=== PATIENT | female | born 1985 | race Two or more races ===

== ENCOUNTER 2024-10-03 10:14 | Outpatient (RCR) | payer MEDICAID, SELFPAY ==
--- NOTE | 2024-08-22 10:57 | XR_ITS ---
Examination: Biophysical profile, ultrasound Date and time of exam: August 22, 2024 1101 hrs. Indications: High risk , history of polyhydramnios, advanced maternal age Technique: Multiple transabdominal sonographic images of the pelvis abdomen obtained. Attention is directed to the breathing movement, gross body movement, amniotic fluid volume and tone. Findings: Amniotic fluid index 13.7 cm Total biophysical profile is 8 of 8. breathing movement is 2. Gross body movement is 2. tone is 2. Qualitative amniotic fluid volume is 2 Impression: Biophysical profile is 8 of 8.
[2024-08-22 11:35] VITALS: BP 101/70; PULSE 79; RESP 18; TEMP 36.8
--- NOTE | 2024-08-29 10:10 | XR_ITS ---
Examination: Biophysical profile, ultrasound Date and time of exam: August 29, 2024 10:29 AM INDICATIONS: Diagnosis high risk , polyhydramnios, advanced maternal age Technique: Multiple transabdominal sonographic images of the pelvis abdomen obtained. Attention is directed to the breathing movement, gross body movement, amniotic fluid volume and tone. Findings: Amniotic fluid index 14.2 cm Total biophysical profile is 8 of 8. breathing movement is 2. Gross body movement is 2. tone is 2. Qualitative amniotic fluid volume is 2 Impression: Biophysical profile is 8 of 8.
[2024-08-29 10:55] VITALS: BP 108/72; PULSE 82; RESP 16; TEMP 36.6
--- NOTE | 2024-09-05 10:40 | XR_ITS ---
EXAMINATION: US OB biophysical profile ORDERING PROVIDER: Maral Henry CNM HISTORY: WEEKLY BPP/NST POLYHYDRAMNIOS, AMA TECHNIQUE: Multiple transabdominal sonographic images were obtained by public health technologist and submitted for interpretation. COMPARISON: 08/29/2024, ultrasound OB biophysical profile. FINDINGS: FETUS: Singh. PRESENTATION: Cephalic. HEART MOTION: 144 beats/min. AMNIOTIC FLUID INDEX: 13.2 cm BREATHING MOVEMENT: 2 . GROSS BODY MOVEMENT: 2 . TONE: 2 . QUALITATIVE AMNIOTIC FLUID VOLUME: 2 TOTAL BIOPHYSICAL PROFILE: 8 of 8 . IMPRESSION: Single live intrauterine gestation with biophysical profile 8 of 8.
[2024-09-05 11:09] VITALS: BP 90/55; PULSE 88; RESP 16; TEMP 36.6
--- NOTE | 2024-09-12 10:20 | XR_ITS ---
Examination: Biophysical profile, ultrasound Date and time of exam: September 12, 2024 1034 hours INDICATIONS: Diagnosis advanced maternal age, diagnosis polyhydramnios, diagnosis high risk Technique: Multiple transabdominal sonographic images of the pelvis abdomen obtained. Attention is directed to the breathing movement, gross body movement, amniotic fluid volume and tone. Findings: Amniotic fluid index 11.7 cm Total biophysical profile is 8 of 8. breathing movement is 2. Gross body movement is 2. tone is 2. Qualitative amniotic fluid volume is 2 Impression: Biophysical profile is 8 of 8.
[2024-09-12 11:40] VITALS: BP 110/76; PULSE 74; RESP 16; TEMP 36.7
--- NOTE | 2024-09-19 10:25 | XR_ITS ---
Examination: Biophysical profile, ultrasound Date and time of exam: September 19, 2024 1030 hours INDICATIONS: Diagnosis polyhydramnios, diagnosis advanced maternal age Technique: Multiple transabdominal sonographic images of the pelvis abdomen obtained. Attention is directed to the breathing movement, gross body movement, amniotic fluid volume and tone. Findings: Amniotic fluid index 6.7 cm Total biophysical profile is 8 of 8. breathing movement is 2. Gross body movement is 2. tone is 2. Qualitative amniotic fluid volume is 2 Impression: Biophysical profile is 8 of 8.
[2024-09-19 11:01] VITALS: BP 103/54; PULSE 84; RESP 16; TEMP 36.7
--- NOTE | 2024-09-26 10:06 | XR_ITS ---
Examination: Biophysical profile, ultrasound Date and time of exam: September 26, 2024 1050 hours INDICATIONS: Diagnosis polyhydramnios, diagnosis advanced maternal age Technique: Multiple transabdominal sonographic images of the pelvis abdomen obtained. Attention is directed to the breathing movement, gross body movement, amniotic fluid volume and tone. Findings: Amniotic fluid index 7.4 cm Total biophysical profile is 8 of 8. breathing movement is 2. Gross body movement is 2. tone is 2. Qualitative amniotic fluid volume is 2 Impression: Biophysical profile is 8 of 8.
[2024-09-26 11:05] VITALS: BP 110/66; PULSE 84; RESP 16; TEMP 36.8
--- NOTE | 2024-10-03 10:23 | XR_ITS ---
Examination: Biophysical profile, ultrasound Date and time of exam: October 03, 2024 1040 hrs. Indications: Diagnosis advanced maternal age, history polyhydramnios, diagnosis high risk Technique: Multiple transabdominal sonographic images of the pelvis abdomen obtained. Attention is directed to the breathing movement, gross body movement, amniotic fluid volume and tone. Findings: Amniotic fluid index 7.3 cm Total biophysical profile is 8 of 8. breathing movement is 2. Gross body movement is 2. tone is 2. Qualitative amniotic fluid volume is 2 Impression: Biophysical profile is 8 of 8.
[2024-10-03 11:04] VITALS: BP 109/76; PULSE 85; RESP 16; TEMP 36.7
== END 2024-10-03 23:59 | disposition home or self-care (01) ==
LOC: S4S1 10:14
PROVIDERS: PCP Family Medicine; Referring Provider Advanced Practice Midwife; Visit Provider Advanced Practice Midwife
DX: O40.3XX0 Polyhydramnios, third trimester, not applicable or unspecified (principal); O09.523 Supervision of elderly multigravida, third trimester; O09.93 Supervision of high risk pregnancy, unspecified, third trimester
CPT/HCPCS: 59025; 76819

== ENCOUNTER 2024-10-06 11:35 | Outpatient (CLI) | payer MEDICAID, SELFPAY ==
[2024-10-06 11:37] VITALS: BP 102/69; PULSE 93
[2024-10-06 11:42] VITALS: BP 102/69; PULSE 93; RESP 16; RESP 98; TEMP 36.7; O2SAT 98; BMI 33.3
== END 2024-10-06 12:15 | disposition home or self-care (01) ==
LOC: S4S1 11:36 → S4SX 11:36
PROVIDERS: Referring Provider Obstetrics & Gynecology; Visit Provider Obstetrics & Gynecology
DX: O48.0 Post-term pregnancy (principal); Z3A.40 40 weeks gestation of pregnancy
CPT/HCPCS: 59025

== ENCOUNTER 2024-10-06 21:53 | Inpatient (IN) | payer MEDICAID, SELFPAY ==
[2024-10-06] VITALS (16 sets, daily range): BP systolic 108–111; BP diastolic 69–75; PULSE 66–87; RESP 18; TEMP 36.7; O2SAT 96–100; BMI 32.2
[2024-10-06 22:31] LABS: Basophils % (Auto) 1 % (0-2.5); Eosinophils # (Auto) 0.1 Thou/mm3 (0.0-0.5); Eosinophils % (Auto) 2 % (0-10); Hematocrit 26.1 % (36.0-46.0); Immature Granulocytes % (Auto) 1 % (0-0); Immature Granulocytes Auto 0.03 Thou/mm3 (0.00-0.00); Lymphocytes # (Auto) 1.5 Thou/mm3 (1.0-4.8); Lymphocytes % (Auto) 25 % (10-50); Mean Corpuscular HGB Conc 32.2 g/dl (31.0-37.0); Mean Corpuscular Hemoglobin 22.8 pg (25.0-35.0); Mean Corpuscular Volume 71 fL (80-100); Monocytes # (Auto) 0.5 Thou/mm3 (0.0-0.8); Monocytes % (Auto) 8 % (0-12); Neutrophils # (Auto) 3.8 Thou/mm3 (1.8-7.7); Neutrophils % (Auto) 64 % (37-80); Nucleated Red Blood Cell # 0.06 Thou/mm3 (0.00-0.00); Nucleated Red Blood Cell % 1 /100 WBC (0); Platelet Count 178 Thou/mm3 (140-440); RDW Standard Deviation 44.2 fL (36.4-46.3); Red Blood Count 3.69 Miln/mm3 (4.00-5.20); White Blood Count 5.9 Thou/mm3 (3.6-11.0)
[2024-10-06] MEDS: RINGERS LACTATED 1000 ML 1,000 ML 100 ML IV (22:34)
--- NOTE | 2024-10-06 22:46 | ESHP_ITS ---
Documentation for date of: 10/06/24 OB Labor/Induct. HPI History of Present Illness : 7 Para: 4 Term pregnancies: 4 pregnancies: 0 Living children: 4 History of Abortions: Spontaneous and Elective: 2 History of Vaginal deliveries: 4 History of sections: No Date of last menstrual period: 12/31/23 IVELISSE: 10/06/24 Gestational Age (weeks): 40 Gestational Age (days): 0 Gestational age based on last menstrual period: 40 History of present illness: Katarina is a 39yo with SIUP presenting for IOL indicated for AMA, obesity (BMI 30). She has had normal movement. No painful/regular ctx. No LOF or vb. History of Present Dating criteria: based on LMP only Adequate Care: Yes Ultrasounds: abnormal US findings Abnormal ultrasound findings: 5mm VSD, polyhydramnios (resolved on later ultrasounds) Narrative: G1-4 term uncomplicated svds, proven to 7lb G5: early sab with D&C G6: early sab (twins) G7: current. complications: Obesity (starting BMI 30), AMA, elevated 1hr glucola but only 1 elevation on 3hr GTT (starting HgbA1c 5.6), anemia, VSD 5mm Labs Maternal Blood Type: O Pos Labs: Positive: Rubella Titre and Negative: RPR, Hepatitis B, HIV, Chlamydia, Gonorrhea and Group Beta Strep Narrative: Negative NIPT, negative CF and SMA testing Review of Systems Review of Systems Narrative Review of Systems: Review of Systems Systems Reviewed: All systems reviewed, normal except as documented Constitutional Constitutional: Denies body ache(s), Denies chills, Denies fever(s) and Denies headache(s) ENT Ears, Nose, Mouth, and Throat: Denies headache(s) and Denies vertigo Cardiovascular Cardiovascular: Denies chest pain, Denies palpitations, Denies dyspnea and Denies syncope Respiratory Respiratory: Denies cough, Denies dyspnea Gastrointestinal Gastrointestinal: Denies nausea and Denies vomiting Neurologic Neurologic: Denies convulsions, Denies headache(s), Denies other visual disturbances, Denies syncope and Denies vertigo Past Medical History Family History OTHER FAMILY HX: non-contributory Surgical History SURGICAL: Negative Section OTHER SURGICAL HX: Hx of cervical cryotherapy, D&C for sab Social History SOCIAL: No ETOH, illicit drug use, or tobacco Past Medical History Comments PMH COMMENT: Obesity (starting BMI 30), initial HgbA1c 5.6 Hx of abnormal pap, +HPV, treated with cryotherapy. Most recent pap wnl. Meds Home Medications and Allergies Allergies Allergy/AdvReac Type Severity Reaction Status Date / Time No Known Allergies Allergy Verified 10/06/24 21:57 OB Exam Physical Exam Vital signs: Pulse BP 73 111/69 10/06/24 22:37 10/06/24 22:37 Narrative: General: well developed, well nourished, no acute distress, conversant Cardiac: normal heart rate Lungs: breathing without distress Abdomen: soft, gravid, non-tender, no rebound or guarding Extremities: no pain with palpation of calves Detailed Labor and Delivery Exam Dilation (cm): 2 Effacement (%): 50 station: -2 Presentation: Vertex Membranes: intact Baseline heart rate: 135 monitor accelerations: 15x15 monitor decelerations: None long term care administrator variability: Moderate (11-25) Contraction frequency (min): q8-10min OB Results Labs 10/06/24 22:08 OB Assessment & Plan Assessment and Plan (1) Elderly multigravida in third trimester: Status: Acute Assessment and plan: Katarina is a 39yo with SIUP presenting for IOL indicated for AMA and A1GDM. SCE: 250/-3. Vitals wnl, benign exam. Reassuring assessment overall. care: Good care with [facility]. Available records in EMR reviewed. PMhx/PNC significant for: -AMA, age 39 -elevated 1hr glucola but only 1 elevation on 3hr GTT (starting HgbA1c 5.6) -Obesity (starting BMI 30) -anemia - VSD 5mm Plan: -Admit to L&D -Establish IV, routine labs -Intermittent monitoring during early IOL -Clear liquid diet -Divisional Human Resources Director/consent re: iol and -GBS status: negative -Will initiate IOL with: cytotec 50mcg PO Q4hr -Anticipate -Safe to proceed Tessa Champion MD (2) Gestational diabetes: Status: Acute (3) Encounter for induction of labor: Status: Acute (2) Gestational diabetes Qualifiers: Gestational diabetes mellitus control: diet-controlled Trimester: third trimester Qualified Code(s): O24.410 - Gestational diabetes mellitus in , diet controlled
[2024-10-06 22:50] LABS: Hemoglobin 8.4 g/dL (12.0-16.0)
[2024-10-06] MEDS: MISOPROSTOL 50 mCg TABLET PO (23:25)
[2024-10-06 23:47] LABS: Syphilis Nonreactive (Nonreactive)
[2024-10-07] VITALS (128 sets, daily range): BP systolic 100–148; BP diastolic 62–87; PULSE 56–96; RESP 14–20; TEMP 36.5–37.3; O2SAT 86–100
[2024-10-07] MEDS: fentaNYL CIT INJ 50 mCg/ML AMP 2ML 100 MCG IV ×2 (03:31→07:16)
[2024-10-07] MEDS: MISOPROSTOL 50 mCg TABLET PO (04:50)
[2024-10-07] MEDS: OXYTOCIN in NS 20 units 20 UNIT/1,000 ML BAG 125 UNIT IV ×2 (08:29→09:47)
[2024-10-07] MEDS: METHYLERGONOVINE INJ 0.2 MG/ML VIAL IM (08:34)
[2024-10-07] MEDS: TRANEXAMIC ACID 1,000 MG IVPB 1,000 MG/100 ML BAG 200 MG IV (08:34)
[2024-10-07] MEDS: MISOPROSTOL 200 mCg TABLET 800 MCG PR (08:37)
[2024-10-07] MEDS: OXYTOCIN INJ 10 UNIT/ML VIAL IM (08:39)
--- NOTE | 2024-10-07 09:07 | PD.LDDELS ---
Data (Singh) Data Hx Section: No Maternal Blood Type: O Pos Rubella Titre: Positive RPR: Non-reactive Labs: Negative: RPR, Hepatitis B, HIV, Chlamydia, Gonorrhea and Group Beta Strep : 7 Term: 4 : 0 Livin : 2 Delivery Data (Singh) Labor Data Stimulated/Augmented: Yes Induction: Yes Method: Cytotec ROM Date: 10/07/24 ROM Time: 08:23 Length ROM (minutes): 3 Rupture Type: AROM Amniotic Fluid: Clear Delivery Data EDC: 10/06/24 EDC calculated by:: LMP/early US confirmation Delivery Date: 10/07/24 Delivery Time: 08:26 Gestational age (weeks): 40 Gestational age (days): 1 Placenta Delivery Date: 10/07/24 Placenta Delivery Time: 08:30 Length stage 2 (minutes): 3 Length stage 3 (minutes): 4 Delivered by: Yess[facility] ([facility]) Delivery nurse: Christina Conti nurse: Marquita Collar Stitcher at delivery: No Support person(s) at delivery: None Other staff at delivery: Kasey Wiley banbury mill operator Method Delivery: Vaginal Presentation: Vertex Position: OA Anesthesia Type Primary Anesthesia: None Secondary Anesthesia: None Delivery Room Medications Other Intrapartum Medications: No Post Delivery Medications: Cytotec and Ergotrate (Extra 10 units of Pitocin in IV bag, TXA) Post Delivery Medications N/A: Yes Placenta Placenta Delivery: Spontaneous Placenta Cultures Obtained: No Placenta Sent for Examination: No Cord Sample: Cord Blood Obtained Episiotomy Episiotomy: None EBL Estimated blood loss (ml): 500 Umbilical Cord Umbilical Vessels: 3 Nuchal Cord: None Body Cord: None Additional Procedures The patient is a 39-year-old who was admitted 10/06/24 for an induction of labor for postdates at 40 1/7 weeks. She was given Cytotec orally x 2. She was approximately 4 cm dilated when she was turned over to nc at 7:00 in the morning by Dr. Champion on 10/07/2024. The baby had a reactive Category I tracing and patient was phylicia every 3 minutes. She went on to progress to 9 cm dilation by approximately 8:15 in the morning and felt the urge to push. The patient had declined an epidural. An amniotomy was performed at 8:23 AM and the patient began pushing within the next 2-3 contractions. She pushed a total of 1-2 contractions delivering a liveborn male at 8:26 am. Findings:liveborn male in the MICHELET presentation with no nuchal cord and no meconium. Apgars were 9 and 9. Weight was 8 pounds 5 ounces or approximately 3750 g. The placenta was complete spontaneous grossly normal and delivering within 4 minutes of the baby at approximately 8:30 in the morning. The patient delivered over an intact perineum with no lacerations noted. Immediately after delivery, the patient was found to have brisk bleeding vaginally. Aggressive uterine massage was performed and the uterine cavity carefully evaluated with the surgeon's fingers and no retained products were found. Some clots were extracted. The patient continued to bleed and Methergine was called for and given IM. TXA was also called for. 10 more units of Pitocin was called for and added to the IV bag of pitocin that was already infusing. 800 mcg of Cytotec were then placed rectally. As the patient continued to have moderate bleeding after all of these interventions, the surgeons gloves were changed, and a Bakri balloon was called for and placed at the bedside with 400 cc of sterile normal saline. The balloon was placed at 8:54 in the morning. One half of a Curlex was also placed vaginally to stabilize the Bakri. At the end of all these interventions, the patient's bleeding was noted to be scant. A Alves catheter was placed. The plan was to keep the Bakri in place 24 hours. Patient was given 2 g of Ancef every 8 hours x 3 doses. A stat CBC was called for. Patient's predelivery hemoglobin was 8.4. Two units of packed red blood cells were called for and transfused. EBL was noted to be 500 cc. All the interventions were explained to the patient in detail in Greenlandic by Christina CARDOSO and all questions answered. Complications Complications: hemorrhage, placement of Bakri balloon in delivery room with 400 cc normal saline, transfusion of 2 units packed red blood cells in delivery room. [place] Data (Singh) Data order: 5 Gender: Male Infant Weight Grams: 3750 g ( 8 lb 5 oz)
[2024-10-07] MEDS: IBUPROFEN TAB 400 MG TABLET 800 MG PO ×2 (09:44→19:07)
[2024-10-07 09:53] LABS: Basophils % (Auto) 0 % (0-2.5); Eosinophils % (Auto) 0 % (0-10); Hematocrit 27.4 % (36.0-46.0); Immature Granulocytes % (Auto) 0 % (0-0); Immature Granulocytes Auto 0.04 Thou/mm3 (0.00-0.00); Lymphocytes # (Auto) 0.8 Thou/mm3 (1.0-4.8); Lymphocytes % (Auto) 8 % (10-50); Mean Corpuscular HGB Conc 30.7 g/dl (31.0-37.0); Mean Corpuscular Volume 75 fL (80-100); Monocytes # (Auto) 0.4 Thou/mm3 (0.0-0.8); Monocytes % (Auto) 4 % (0-12); Neutrophils # (Auto) 8.2 Thou/mm3 (1.8-7.7); Neutrophils % (Auto) 87 % (37-80); Nucleated Red Blood Cell # 0.02 Thou/mm3 (0.00-0.00); Nucleated Red Blood Cell % 0 /100 WBC (0); Platelet Count 148 Thou/mm3 (140-440); RDW Standard Deviation 47.6 fL (36.4-46.3); Red Blood Count 3.65 Miln/mm3 (4.00-5.20); White Blood Count 9.4 Thou/mm3 (3.6-11.0)
[2024-10-07 10:03] LABS: Hemoglobin 8.4 g/dL (12.0-16.0)
[2024-10-07] MEDS: ceFAZolin/D5W 2 GM IV 2 GM/100 ML BAG IV ×2 (11:02→18:27)
[2024-10-07] MEDS: FERROUS SULF 325 MG TABLET PO (18:27)
[2024-10-07] MEDS: RINGERS LACTATED 1000 ML 1,000 ML 100 ML IV (19:49)
[2024-10-07] MEDS: HYDROcodone/APAP 5/325 TABLET 1 TAB PO (20:03)
[2024-10-07 20:40] LABS: Basophils % (Auto) 0 % (0-2.5); Eosinophils % (Auto) 0 % (0-10); Hematocrit 32.3 % (36.0-46.0); Hemoglobin 10.5 g/dL (12.0-16.0); Immature Granulocytes % (Auto) 0 % (0-0); Immature Granulocytes Auto 0.04 Thou/mm3 (0.00-0.00); Lymphocytes # (Auto) 1.2 Thou/mm3 (1.0-4.8); Lymphocytes % (Auto) 11 % (10-50); Mean Corpuscular HGB Conc 32.5 g/dl (31.0-37.0); Mean Corpuscular Hemoglobin 24.3 pg (25.0-35.0); Mean Corpuscular Volume 75 fL (80-100); Monocytes # (Auto) 0.6 Thou/mm3 (0.0-0.8); Monocytes % (Auto) 6 % (0-12); Neutrophils # (Auto) 8.6 Thou/mm3 (1.8-7.7); Neutrophils % (Auto) 82 % (37-80); Nucleated Red Blood Cell # 0.02 Thou/mm3 (0.00-0.00); Nucleated Red Blood Cell % 0 /100 WBC (0); Platelet Count 135 Thou/mm3 (140-440); RDW Standard Deviation 47.8 fL (36.4-46.3); Red Blood Count 4.32 Miln/mm3 (4.00-5.20); White Blood Count 10.5 Thou/mm3 (3.6-11.0)
[2024-10-08 01:00] VITALS: BP 94/62; PULSE 58; RESP 14; TEMP 36.7; O2SAT 96
[2024-10-08] MEDS: ceFAZolin/D5W 2 GM IV 2 GM/100 ML BAG IV (03:25)
[2024-10-08 03:30] VITALS: BP 93/64; PULSE 59; RESP 17; TEMP 36.6; O2SAT 97
[2024-10-08 08:00] VITALS: BP 99/64; PULSE 58; RESP 16; TEMP 36.8; O2SAT 96
[2024-10-08] MEDS: PRENATAL VITAMIN/FE FUM/FA TABLET 1 TAB PO (09:17)
[2024-10-08] MEDS: FERROUS SULF 325 MG TABLET PO (09:17)
[2024-10-08] MEDS: IBUPROFEN TAB 400 MG TABLET 800 MG PO (09:17)
[2024-10-08 11:21] LABS: Basophils % (Auto) 0 % (0-2.5); Eosinophils % (Auto) 1 % (0-10); Hematocrit 31.8 % (36.0-46.0); Hemoglobin 10.3 g/dL (12.0-16.0); Immature Granulocytes % (Auto) 1 % (0-0); Immature Granulocytes Auto 0.07 Thou/mm3 (0.00-0.00); Lymphocytes # (Auto) 1.2 Thou/mm3 (1.0-4.8); Lymphocytes % (Auto) 14 % (10-50); Mean Corpuscular HGB Conc 32.4 g/dl (31.0-37.0); Mean Corpuscular Hemoglobin 24.4 pg (25.0-35.0); Mean Corpuscular Volume 75 fL (80-100); Monocytes # (Auto) 0.4 Thou/mm3 (0.0-0.8); Monocytes % (Auto) 4 % (0-12); Neutrophils # (Auto) 7.2 Thou/mm3 (1.8-7.7); Neutrophils % (Auto) 81 % (37-80); Nucleated Red Blood Cell % 0 /100 WBC (0); Platelet Count 152 Thou/mm3 (140-440); RDW Standard Deviation 49.5 fL (36.4-46.3); Red Blood Count 4.22 Miln/mm3 (4.00-5.20); White Blood Count 8.9 Thou/mm3 (3.6-11.0)
--- NOTE | 2024-10-08 12:41 | PD.LDPPPRG ---
Subjective Subjective Interval history: Patient is a 39-year-old G7P now 5025 who delivered yesterday morning approximately 8:30 in the morning. Her delivery was complicated by hemorrhage, transfusion of 2 units of blood, administration of multiple uterotonics, and by placement of a bedside Bakri balloon and vaginal packing. The patient is doing well overnight and has no complaints. She has had a Alves catheter and and the Bakri Balloon in place for 24 hours. She has been on Ancef for 24 hours. Of note the patient is [place]-speaking and all communication is through her nurse at bedside. Exam Vital Signs Temp Pulse Resp BP Pulse Ox O2 Del Method 98.2 F 58 L 16 99/64 96 Room Air 10/08/24 08:00 10/08/24 08:00 10/08/24 08:00 10/08/24 08:00 10/08/24 08:00 10/08/24 08:00 Narrative Exam Patient is alert and oriented x 3 resting comfortably breast-feeding her baby in bed. She does not appear pale. Fundus is firm and nontender. Perineum shows no unusual swelling. No pedal edema and no significant erythema of lower extremities Objective Labs 10/08/24 08:51 Labs: Laboratory Results - last 24 hr 10/06/24 10/07/24 10/08/24 22:08 20:29 08:51 WBC 10.5 8.9 RBC 4.32 4.22 Hgb 10.5 L D 10.3 L Hct 32.3 L 31.8 L MCV 75 L 75 L MCH 24.3 L 24.4 L MCHC 32.5 32.4 RDW Std Deviation 47.8 H 49.5 H Plt Count 135 L 152 Neut % (Auto) 82 H 81 H Lymph % (Auto) 11 14 [place] % (Auto) 6 4 Eos % (Auto) 0 1 Baso % (Auto) 0 0 Neut # (Auto) 8.6 H 7.2 Lymph # (Auto) 1.2 1.2 [place] # (Auto) 0.6 0.4 Eos # (Auto) 0.0 0.0 Baso # (Auto) 0.0 0.0 Immature Gran # (Auto) 0.04 H 0.07 H Absolute Nucleated RBC 0.02 H 0.00 Immature Gran % 0 1 H Nucleated RBC % 0 0 Crossmatch See Detail Assessment & Plan Problem List (1) Term delivered: Status: Acute Assessment and plan: Patient is doing well. Ambulate. Routine care (2) hemorrhage, delivered, current hospitalization: Status: Acute Assessment and plan: Bakri , vaginal packing and Alves balloon removed at 9 AM. Recheck CBC. The plan will be to have the patient ambulate and keep track of her bleeding and her fundal height. If patient is patient is stable, she can probably be discharged this evening at approximately 5 PM. All questions were answered and procedures explained with RN at bedside who does speak [place] translating. Time Spent With Patient Time: Total time spent is greater than 50% in coordination of care (as documented) at patient's floor/unit and/or counseling patient: Time with patient: less than 15 minutes
--- NOTE | 2024-10-08 14:27 | PC.SS ---
Debbie received a consult for patient due to having poor support. METAL CUT OFF SAW TENDER introduced herself, role in the agency, reason for visit, and discussed limits of confidentiality. Patient appeared alert and oriented to self, time, place, and situation. Patient appears stated age. Patient made good eye contact. Patient?s attitude appeared pleasant and cooperative. Patient?s behavior appeared ordinary. Patient?s mood appears ordinary. No signs of delusions or hallucinations. Patient verified her home address and phone number. Patient reported that she resides at home with her 4 daughters (ages: 18, 15, 13, and 10). Patient delivered a son, Andrew. Patient reports that father of the child is not involved. Patient reports being independent with all her ADLs, no DME use. Patient reports that prior to admission, she was unemployed. Patient currently receives WIC, and food stamps. Patient denies any involvement with [facility]. Patient has custody of all her children. Patient denies any history or current domestic violence. Patient denies any history or current mental health illnesses. She denies receiving any outpatient mental health services. Patient denies any history of suicide attempts, 5150 holds. Patient denies any HI, SI. Patient reports feeling happy and excited to return home. Patient reports having all the equipment for the baby. Patient reports that her main support system is her [id number]-law, Niharika. When medically clear, patient will return home. Patient declined any community resources. No social needs at this time.
[2024-10-08 16:04] VITALS: BP 101/63; PULSE 62; RESP 18; TEMP 36.7; O2SAT 96
== END 2024-10-08 19:00 | disposition home or self-care (01) | DRG 542 ==
LOC: S4SX 10-07 09:01 → S4NX 10-07 14:01
PROVIDERS: Obstetrics & Gynecology; Admitting Provider Obstetrics & Gynecology; Visit Provider Obstetrics & Gynecology
DX: O48.0 Post-term pregnancy (principal); Z3A.40 40 weeks gestation of pregnancy; O24.420 Gestational diabetes mellitus in childbirth, diet controlled; Z37.0 Single live birth; O99.214 Obesity complicating childbirth; O40.3XX0 Polyhydramnios, third trimester, not applicable or unspecified; O99.02 Anemia complicating childbirth; O72.1 Other immediate postpartum hemorrhage
CPT/HCPCS: 36415; 59409; 85025; 86780; 86850; 86900; 86901; 86923; 94762; J0689; J2210; J2590; J3010; J3490; J7120; P9016; S0191; A9270